=== PATIENT | female | born 1975 | race Caucasian/White ===

== ENCOUNTER 2021-06-29 07:13 | Outpatient (CLI) | payer SELFPAY ==
--- NOTE | 2021-06-29 07:15 | US_ITS ---
WS: [id number] ULTRASOUND THYROID TECHNIQUE: Ultrasound of the thyroid. CLINICAL INFORMATION: dysphagia, COMPARISON: None. FINDINGS: Thyroid: Right and left thyroid lobes are enlarged and heterogeneous in echotexture. No thyroid nodul es are present. No dominant nodules to target for biopsy. Right thyroid lobe: 7.1 cm x 2.8 cm x 3.0 cm Left thyroid lobe: 6.0 cm x 2.9 cm x 3.0 cm. Isthmus: 0.8 mm. Cervical lymphadenopathy: None. US/US thyroid [id number] IMPRESSION: 1. Enlarged heterogeneous thyroid gland with heterogeneous echotexture most co mpatible with multinodular goiter. Recommend correlation with thyroid function studies. 2. No dominant nodules to target for biopsy. 3. Right lobe thyroid volume 31.5 cc and left lobe volume 26.3 cc
== END 2021-06-29 07:14 | disposition home or self-care (01) ==
PROVIDERS: Visit Provider Internal Medicine
DX: R13.10 Dysphagia, unspecified (principal); E04.9 Nontoxic goiter, unspecified
CPT/HCPCS: 76536

== ENCOUNTER → 2021-07-06 08:17 | Outpatient (BNVA) | payer SELFPAY | PROVIDERS: Visit Provider Internal Medicine | DX: R13.10 Dysphagia, unspecified (principal); E04.9 Nontoxic goiter, unspecified; E06.9 Thyroiditis, unspecified; E05.90 Thyrotoxicosis, unspecified without thyrotoxic crisis or storm; F17.210 Nicotine dependence, cigarettes, uncomplicated | CPT/HCPCS: 99214 ==

== ENCOUNTER 2021-07-06 09:19 | Outpatient (CLI) | payer SELFPAY ==
[2021-07-06 10:33] LABS: Free T4 Free Thyroxine 0.53 ng/dL (0.82-1.77)
[2021-07-07 07:43] LABS: T3 Total 82 ng/dL (76-181)
[2021-07-09 13:33] LABS: Thyroglobulin AB >1000 IU/mL (< or = 1)
[2021-07-09 15:23] LABS: Thyroid Peroxidase Antobodies >900 IU/mL (<9)
[2021-07-12 17:09] LABS: TSH Receptor Binding Antibody <1.00 IU/L (< OR = 2.00)
== END 2021-07-06 09:20 | disposition home or self-care (01) ==
LOC: LAB 09:24
PROVIDERS: PCP Internal Medicine; Visit Provider Internal Medicine
DX: R13.10 Dysphagia, unspecified (principal); E04.9 Nontoxic goiter, unspecified
CPT/HCPCS: 36415; 83516; 84439; 84443; 84480; 86376; 86800

== ENCOUNTER 2021-07-20 08:09 | Outpatient (CLI) | payer SELFPAY ==
[2021-07-20 09:23] LABS: Free T4 Free Thyroxine 1.39 ng/dL (0.82-1.77); Thyroid Stimulating Hormone 16.03 uIU/mL (0.27-4.20)
[2021-07-23 15:53] LABS: Thyroid Peroxidase Antobodies >900 IU/mL (<9)
== END 2021-07-20 08:10 | disposition home or self-care (01) ==
LOC: LAB 08:13
PROVIDERS: PCP Internal Medicine; Visit Provider Internal Medicine
DX: E04.9 Nontoxic goiter, unspecified (principal); R13.10 Dysphagia, unspecified
CPT/HCPCS: 84439; 84443; 86376

== ENCOUNTER 2022-03-05 14:06 | Outpatient (CLI) | payer SELFPAY ==
[2022-03-05 15:08] LABS: Free T4 Free Thyroxine 1.25 ng/dL (0.82-1.77)
[2022-03-05 15:09] LABS: Thyroid Stimulating Hormone 9.16 uIU/mL (0.27-4.20)
[2022-03-07 11:58] LABS: Immunoglobulin A 177 mg/dL (47-310)
[2022-03-08 03:48] LABS: Gliadin Ab.IgA 2.3 U/mL; Gliadin Ab.IgG <1.0 U/mL; Tissue Transglutaminase IgA Ab <1.0 U/mL; Tissue transglutaminase Ab.IgG <1.0 U/mL
== END 2022-03-05 14:07 | disposition home or self-care (01) ==
LOC: LAB 14:07
PROVIDERS: PCP Internal Medicine; Visit Provider Internal Medicine
DX: E03.9 Hypothyroidism, unspecified (principal); K90.41 Non-celiac gluten sensitivity
CPT/HCPCS: 36415; 82784; 83516; 84439; 84443

== ENCOUNTER 2022-06-23 10:30 | Outpatient (CLI) | payer SELFPAY ==
[2022-06-23 11:24] LABS: Free T4 Free Thyroxine 1.43 ng/dL (0.82-1.77); Thyroid Stimulating Hormone 10.93 uIU/mL (0.27-4.20)
== END 2022-06-23 10:31 | disposition home or self-care (01) ==
LOC: LAB 10:31
PROVIDERS: PCP Internal Medicine; Visit Provider Internal Medicine
DX: E03.9 Hypothyroidism, unspecified (principal)
CPT/HCPCS: 36415; 84439; 84443

== ENCOUNTER 2022-08-24 10:13 | Outpatient (CLI) | payer SELFPAY ==
[2022-08-24 11:18] LABS: Free T4 Free Thyroxine 1.27 ng/dL (0.82-1.77); Thyroid Stimulating Hormone 12.78 uIU/mL (0.27-4.20)
== END 2022-08-24 10:14 | disposition home or self-care (01) ==
PROVIDERS: PCP Internal Medicine; Visit Provider Internal Medicine
DX: E03.9 Hypothyroidism, unspecified (principal)
CPT/HCPCS: 36415; 84439; 84443

== ENCOUNTER 2022-10-26 10:35 | Outpatient (CLI) | payer SELFPAY ==
[2022-10-26 11:35] LABS: Free T4 Free Thyroxine 1.47 ng/dL (0.82-1.77); Thyroid Stimulating Hormone 7.26 uIU/mL (0.27-4.20)
== END 2022-10-26 10:36 | disposition home or self-care (01) ==
PROVIDERS: PCP Internal Medicine; Visit Provider Internal Medicine
DX: E03.9 Hypothyroidism, unspecified (principal)
CPT/HCPCS: 36415; 84439; 84443

== ENCOUNTER 2022-12-29 10:55 | Outpatient (CLI) | payer SELFPAY ==
[2022-12-29 12:08] LABS: Free T4 Free Thyroxine 1.61 ng/dL (0.82-1.77); Thyroid Stimulating Hormone 3.98 uIU/mL (0.27-4.20)
== END 2022-12-29 10:56 | disposition home or self-care (01) ==
PROVIDERS: PCP Internal Medicine; Visit Provider Internal Medicine
DX: E03.9 Hypothyroidism, unspecified (principal); E04.9 Nontoxic goiter, unspecified
CPT/HCPCS: 36415; 84439; 84443

== ENCOUNTER 2023-02-17 07:19 | Outpatient (CLI) | payer SELFPAY ==
--- NOTE | 2023-02-17 07:30 | US_ITS ---
WS: [id number] THYROID ULTRASOUND HISTORY: Goiter COMPARISON: 06/29/2021 Right lobe: 2.5 cm x 2.3 cm x 6.0 cm (w x ap x l). Volume: 18.0 cm3. Enlarged very heterogeneous thyroid. Coarse echotexture and a few thin septations. There is no discre te nodule and no increased vascularity. Size of the gland has slightly decreased and also the vascula rity has decreased since the prior study. Left lobe: 2.4 cm x 2.3 cm x 4.8 cm (w x ap x l). Volume: 13.6 cm3. Enlarged heterogeneous gland. There are multiple small nodules and hyperechoic fibrous septa. No disc rete nodule. The size and vascularity have both decreased. Isthmus: 0.3 cm. US/US thyroid [id number] IMPRESSION: 1. Enlarged heterogeneous gland. Favor improving Breanna's thyroiditis/goite r. 2. Both the size of the gland and the vascularity have decreased since the rachael or study.
[2023-02-17 09:09] LABS: Free T4 Free Thyroxine 1.91 ng/dL (0.82-1.77); Thyroid Stimulating Hormone 0.87 uIU/mL (0.27-4.20)
[2023-02-18 10:29] LABS: T3 Total 97 ng/dL (76-181)
== END 2023-02-17 07:20 | disposition home or self-care (01) ==
LOC: RAD 07:20
PROVIDERS: Visit Provider Internal Medicine
DX: E03.9 Hypothyroidism, unspecified (principal); E04.9 Nontoxic goiter, unspecified; R13.10 Dysphagia, unspecified
CPT/HCPCS: 36415; 76536; 84439; 84443; 84480

== ENCOUNTER 2023-03-02 07:56 | Outpatient (CLI) | payer SELFPAY ==
[2023-03-02 09:38] LABS: Free T4 Free Thyroxine 2.08 ng/dL (0.82-1.77)
== END 2023-03-02 07:57 | disposition home or self-care (01) ==
PROVIDERS: Visit Provider Internal Medicine
DX: E03.9 Hypothyroidism, unspecified (principal)
CPT/HCPCS: 36415; 84439

== ENCOUNTER 2023-03-16 09:09 | Outpatient (CLI) | payer SELFPAY ==
[2023-03-16 09:49] LABS: Free T4 Free Thyroxine 1.69 ng/dL (0.82-1.77)
== END 2023-03-16 09:10 | disposition home or self-care (01) ==
PROVIDERS: Visit Provider Internal Medicine
DX: E03.9 Hypothyroidism, unspecified (principal)
CPT/HCPCS: 36415; 84439

== ENCOUNTER 2023-07-06 08:51 | Outpatient (CLI) | payer SELFPAY ==
[2023-07-06 09:42] LABS: Free T4 Free Thyroxine 1.79 ng/dL (0.82-1.77); Thyroid Stimulating Hormone 0.79 uIU/mL (0.27-4.20)
== END 2023-07-06 08:52 | disposition home or self-care (01) ==
PROVIDERS: Visit Provider Internal Medicine
DX: E03.9 Hypothyroidism, unspecified (principal)
CPT/HCPCS: 36415; 84439; 84443

== ENCOUNTER 2023-08-07 10:26 | Outpatient (CLI) | payer SELFPAY ==
[2023-08-07 11:51] LABS: Free T4 Free Thyroxine 1.62 ng/dL (0.82-1.77)
== END 2023-08-07 10:27 | disposition home or self-care (01) ==
PROVIDERS: Visit Provider Internal Medicine
DX: E03.9 Hypothyroidism, unspecified (principal)
CPT/HCPCS: 36415; 84439